=== PATIENT | male | born 1950 | race Caucasian/White ===

== ENCOUNTER 2016-11-14 14:34 | Emergency (ER) | payer OTHER, MEDICAID ==
[~2016-11-14] VITALS: Ht 170.2 cm; Wt 72.6 kg
[2016-11-14 14:50] VITALS: BP_SYST 103
[2016-11-14] MEDS ORDERED: DIPH-TET-PERTUS Vaccine 0.5 ML VIAL (ADACEL) I.M. ONE (15:45)
[2016-11-14] MEDS ORDERED: DIVA500T7 PO (16:04)
[2016-11-14] MEDS ORDERED: ASPI-1063 PO (16:04)
[2016-11-14] MEDS ORDERED: CALC-226 PO (16:04)
[2016-11-14] MEDS ORDERED: MULT-1170 PO (16:04)
[2016-11-14] MEDS ORDERED: LAMO150T2 PO (16:04)
[2016-11-14] MEDS ORDERED: LEVO330T2 PO (16:04)
[2016-11-14] MEDS ORDERED: DIVA250T34 PO (16:04)
[2016-11-14 16:20] LABS: BASOPHILS # (AUTO) 0.1 K/uL (0.0-0.2); BASOPHILS % (AUTO) 0.7 % (0.0-2.0); EOSINOPHILS # (AUTO) 0.1 K/uL (0.0-0.4); EOSINOPHILS % (AUTO) 1.2 % (0.0-4.0); HEMATOCRIT 37.7 % (36-54); HEMOGLOBIN 12.6 g/dL (14.0-18.0); LYMPHOCYTES # (AUTO) 2.4 K/uL (1.0-5.5); LYMPHOCYTES % (AUTO) 32.4 % (20.5-51.5); MEAN CORPUSCULAR HEMOGLOBIN 32 pg (27-31); MEAN CORPUSCULAR HGB CONC 33 % (32-36); MEAN CORPUSCULAR VOLUME 96 fL (79.0-98.0); MONOCYTES # (AUTO) 0.8 K/uL (0.0-1.0); MONOCYTES % (AUTO) 10.7 % (1.7-9.3); PLATELET COUNT (AUTO) 156 K/uL (130-430); RED BLOOD CELL COUNT(AUTO) 3.94 MIL/uL (4.2-6.2); RED CELL DISTRIBUTION WIDTH 12.4 % (9.0-15.0); WHITE BLOOD COUNT (AUTO) 7.4 K/uL (4.8-10.8)
[2016-11-14 16:30] LABS: CREATININE 0.8 mg/dL (0.55-1.30); POTASSIUM 4.4 mmol/L (3.5-5.1)
[2016-11-14 16:34] LABS: ALBUMIN 3.6 g/dL (3.4-4.8); TOTAL BILIRUBIN 0.3 mg/dL (0.0-1.0); TOTAL PROTEIN, SERUM 7.7 g/dL (6.4-8.3)
[2016-11-14 17:00] VITALS: BP_SYST 103
== END 2016-11-14 17:00 | disposition home or self-care (01) ==
LOC: SED 14:34
DX: S02.40CA Maxillary fracture, right side, initial encounter for closed fracture (principal); W06.XXXA Fall from bed, initial encounter; Y93.89 Activity, other specified; Y99.8 Other external cause status; Y92.89 Other specified places as the place of occurrence of the external cause
CPT/HCPCS: 36415; 70450-TC; 70486-TC; 71010; 80053; 80164-TC; 82550-TC; 84484; 85025; 85610-TC; 85730-TC; 90715; 93005; 99285